=== PATIENT | female | born 1970 | race African-American/Black ===

== ENCOUNTER → 2022-09-10 | Day surgery (SDC) | payer MEDICARE ==
[~2022-09-10] MED LIST: FENTANYL CITRATE/PF 100MCG/2 ML INJ ONE; LAMOTRIGINE100 MG PO; OLMESARTAN-HCT1 EACH PO; PROPOFOL IV EMULSION 10 MG/ML 20 ML VIAL ONE; QUETIAPINE FUMA25 MG PO
[2022-09-10 08:00] VITALS: BP 138/88
== END | disposition home or self-care (01) ==
LOC: ENDO 05:21
PROVIDERS: ATTEND Surgery
DX: K21.9 Gastro-esophageal reflux disease without esophagitis (principal); K31.1 Adult hypertrophic pyloric stenosis; K20.90 Esophagitis, unspecified without bleeding; K44.9 Diaphragmatic hernia without obstruction or gangrene; R11.10 Vomiting, unspecified; Z98.84 Bariatric surgery status; Z90.3 Acquired absence of stomach [part of]; I10 Essential (primary) hypertension; I25.2 Old myocardial infarction; R06.02 Shortness of breath; R56.9 Unspecified convulsions; Z01.810 Encounter for preprocedural cardiovascular examination; Z79.899 Other long term (current) drug therapy
CPT/HCPCS: 43239; 88305; 88342; 93005; J2704; J3010; 43235